=== PATIENT | female | born 1990 | race Caucasian/White ===

== ENCOUNTER 2022-03-09 12:14 | Outpatient (REF) | payer OTHER, SELFPAY ==
--- NOTE | ~2022-03-09 | XR_ITS ---
EXAMINATION: XR SHOULDER, LEFT CLINICAL INFORMATION: Left shoulder pain COMPARISON: None. TECHNIQUE: AP external rotation, Grashey, scapular Y, and axillary views of the left shoulder. FINDINGS: Normal alignment without acute fracture or dislocation. The acromioclavicular articulation is maintained. The glenohumeral relationship is maintained. A small corticated density is seen at the posterior margin of the glenoid measuring 0.2 cm in size. This could be related to remote trauma. No acute findings are seen. XR/XR shoulder LT min 2V IMPRESSION: 1. Normal alignment without acute fracture or dislocation seen. 2. Small corticated density is seen at the posterior margin of the glenoid which could be related to remote trauma. No acute findings are seen.
== END 2022-03-09 12:15 | disposition home or self-care (01) ==
LOC: HO.XRAY 12:14
PROVIDERS: Visit Provider Psychiatry & Neurology Neurology
DX: M79.602 Pain in left arm (principal)
CPT/HCPCS: 73030